=== PATIENT | male | born 1980 | race Caucasian/White ===

== ENCOUNTER 2023-11-08 12:58 | Observation (INO) | payer BC, OTHER, SELFPAY ==
[2023-11-08 13:40] LABS: #Basophils 0.08 10x3/uL (0.0-0.2); #Eosinphils 0.22 10x3/uL (0.0-0.5); #Monocytes 0.66 10x3/uL (0.0-1.1); %Basophils 0.7 % (0.0-2.0); %Monocytes 6.1 % (0.0-10.0); %Neutrophils 79.7 % (40.0-75.0); Hematocrit 49.4 % (38.8-50.0); Hemoglobin 16.9 g/dL (13.5-17.5); Mean Corpuscular HGB CONC 34.2 g/dL (32.0-36.0); Mean Corpuscular Hemoglobin 31.9 pg (27.0-33.0); Mean Corpuscular Volume 93.4 fL (81.2-95.1); Mean Platelet Volume 10.9 fL (7.4-10.4); Platelet Count 221 10x3/uL (150-450); Red Blood Cell (RBC) Count 5.29 10x6/uL (4.32-5.72); White Blood Cell (WBC) Count 10.8 10x3/uL (3.5-10.5)
[2023-11-08 14:05] LABS: ALT (SGPT) 46 U/L (8-55); AST (SGOT) 41 U/L (5-34); Albumin 4.4 g/dL (3.5-5.0); Alkaline Phosphatase 69 U/L (40-110); Anion Gap 16 mmol/L (10-20); BUN (Urea Nitrogen) 20 mg/dL (8.9-20.6); Bilirubin, Total 1.5 mg/dL (0.2-1.2); Calc. Creatinine Clearance 0 mL/min (70-130); Calcium 10.4 mg/dL (7.8-10.44); Carbon Dioxide 22 mmol/L (22-29); Chloride 106 mmol/L (98-107); Estimated GFR 40; Globulin 3.5 g/dL (2.4-3.5); Glucose 195 mg/dL (70-105); Potassium 3.9 mmol/L (3.5-5.1); Protein, Total 7.9 g/dL (6.0-8.3); Sodium 140 mmol/L (136-145)
[2023-11-08 14:06] LABS: Analyzer IN Cardio CS ER; Base Excess -2.6 mEq/L (-2 - +2); Calcium, Ionized (venous) 1.17 mmol/L (1.16-1.32); Chloride (VBG) 104 mmol/L (98-106); Hematocrit-VBG 54 % (42.0-52.0); Hemoglobin (Hb) 18.3 g/dL (13.2-17.3); Potassium (VBG) 3.96 mmol/L (3.70-5.30); Puncture Site Other Site; RapidComm Collect By CBN; Sodium 142 mmol/L (133-146); pH (venous) 7.352 (7.32-7.43)
[2023-11-08] MEDS ORDERED: Ondansetron PF 4 MG/2 ML Vial IVP PRN (16:40)
[2023-11-08] MEDS ORDERED: Acetaminophen 650 MG Suppository PR PRN (16:40)
[2023-11-08] MEDS ORDERED: Ondansetron ODT 4 MG TAB PO PRN (16:40)
[2023-11-08] MEDS ORDERED: Senokot S 8.6-50 MG TAB PO PRN (16:40)
[2023-11-08] MEDS ORDERED: Ventolin HFA Inhaler 60 PUFF INHALER INH PRN (17:27)
[2023-11-08 18:54] VITALS: BMI 32.1
[2023-11-08 18:57] LABS: Magnesium 1.9 mg/dL (1.6-2.6)
[2023-11-08 19:01] LABS: Troponin I 0.038 ng/mL (< 0.028)
[2023-11-08] MEDS: Acetaminophen 325 MG TAB PO SCH (19:05)
[2023-11-08] MEDS: Lactated Ringer's 1,000 ML IV SCH (19:06)
[2023-11-08] MEDS: Nicotine 14 MG PATCH TOP PRN (21:16)
[2023-11-08] MEDS: Famotidine 20 MG TAB PO SCH (21:16)
[2023-11-09 04:53] LABS: #Basophils 0.08 10x3/uL (0.0-0.2); #Eosinphils 0.43 10x3/uL (0.0-0.5); #Monocytes 0.71 10x3/uL (0.0-1.1); #Neutrophils 4.04 10x3/uL (1.5-8.4); %Eosinophils 5.3 % (0.0-6.0); %Lymphocytes 34.3 % (18.0-47.0); %Monocytes 8.8 % (0.0-10.0); %Neutrophils 50.2 % (40.0-75.0); Hematocrit 45.6 % (38.8-50.0); Hemoglobin 15.4 g/dL (13.5-17.5); Mean Corpuscular HGB CONC 33.8 g/dL (32.0-36.0); Mean Corpuscular Hemoglobin 31.9 pg (27.0-33.0); Mean Corpuscular Volume 94.4 fL (81.2-95.1); Mean Platelet Volume 11.3 fL (7.4-10.4); Platelet Count 173 10x3/uL (150-450); RBC Distribution Width 12.9 % (11.5-14.5); Red Blood Cell (RBC) Count 4.83 10x6/uL (4.32-5.72); White Blood Cell (WBC) Count 8.1 10x3/uL (3.5-10.5)
[2023-11-09 05:08] LABS: ALT (SGPT) 35 U/L (8-55); AST (SGOT) 37 U/L (5-34); Alkaline Phosphatase 63 U/L (40-110); BUN (Urea Nitrogen) 19 mg/dL (8.9-20.6); Bilirubin, Total 1.2 mg/dL (0.2-1.2); Calc. Creatinine Clearance 120 mL/min (70-130); Estimated GFR 80
[2023-11-09 05:09] LABS: Albumin 3.6 g/dL (3.5-5.0); Anion Gap 14 mmol/L (10-20); Carbon Dioxide 24 mmol/L (22-29); Globulin 3.5 g/dL (2.4-3.5); Glucose 108 mg/dL (70-105); Protein, Total 7.1 g/dL (6.0-8.3)
[2023-11-09 05:31] LABS: Chloride 108 mmol/L (98-107); Potassium 3.8 mmol/L (3.5-5.1); Sodium 141 mmol/L (136-145)
[2023-11-09] MEDS: Amlodipine 5 MG TAB PO SCH (06:00)
[2023-11-09 07:32] LABS: Troponin I 0.021 ng/mL (< 0.028)
[2023-11-09] MEDS: NIFEdipine XL 30 MG ER.TAB PO SCH (08:09)
[2023-11-09] MEDS: Folic Acid 1 MG TAB PO SCH (08:16)
[2023-11-09] MEDS: Enoxaparin 40 MG (0.4 mL) SYRINGE SC SCH (08:16)
[2023-11-09] MEDS: Multivitamin W/ Minerals 1 TAB PO SCH (08:17)
[2023-11-09 12:13] VITALS: TEMP 97.5
[2023-11-09 13:49] VITALS: BP 164/78
== END 2023-11-09 15:51 | disposition home or self-care (01) ==
LOC: CSHERS 12:58 → CSHTELE 15:26
PROVIDERS: ADMIT Internal Medicine; ATTEND Internal Medicine
DX: R07.89 Other chest pain (principal); I10 Essential (primary) hypertension; G03.9 Meningitis, unspecified; F41.9 Anxiety disorder, unspecified; F17.210 Nicotine dependence, cigarettes, uncomplicated; N17.9 Acute kidney failure, unspecified; Z79.51 Long term (current) use of inhaled steroids; Z79.899 Other long term (current) drug therapy
CPT/HCPCS: 36415; 71045; 80053; 82550; 82805; 83735; 83880; 84484; 85025; 85379; 93005; G0378; J7120

== ENCOUNTER 2024-10-08 02:24 | Inpatient (IN) | payer OTHER ==
[2024-10-08 03:25] VITALS: BMI 32.8
[2024-10-08] MEDS ORDERED: Calcium Carbonate 500 MG ChewTAB PO PRN (03:29)
[2024-10-08] MEDS ORDERED: Melatonin 3 MG TAB PO PRN (03:29)
[2024-10-08] MEDS ORDERED: Ondansetron PF 4 MG/2 ML Vial IVP PRN (03:29)
[2024-10-08] MEDS ORDERED: Senokot S 8.6-50 MG TAB PO PRN (03:29)
[2024-10-08] MEDS ORDERED: Nitroglycerin 0.4 MG TAB (25 Tab Bottle) SL PRN (03:38)
[2024-10-08] MEDS: Losartan 50 MG TAB PO SCH (03:58)
[2024-10-08 04:09] LABS: #Basophils 0.08 10x3/uL (0.0-0.2); #Eosinophils 0.22 10x3/uL (0.0-0.5); #Monocytes 0.73 10x3/uL (0.0-1.1); #Neutrophils 3.88 10x3/uL (1.5-8.4); %Basophils 1.1 % (0.0-2.0); %Eosinophils 3.0 % (0.0-6.0); %Lymphocytes 31.7 % (18.0-47.0); %Monocytes 10.0 % (0.0-10.0); %Neutrophils 53.1 % (40.0-75.0); Hematocrit 42.2 % (38.8-50.0); Hemoglobin 14.1 g/dL (13.5-17.5); Mean Corpuscular Hemoglobin 31.3 pg (27.0-33.0); Mean Corpuscular Volume 93.8 fL (81.2-95.1); Platelet Count 184 10x3/uL (150-450); Red Blood Cell (RBC) Count 4.50 10x6/uL (4.32-5.72); White Blood Cell (WBC) Count 7.31 10x3/uL (3.5-10.5)
[2024-10-08 04:25] LABS: Anion Gap 14 mmol/L (10-20); BUN (Urea Nitrogen) 9 mg/dL (8.9-20.6); Calc. Creatinine Clearance 147 mL/min (70-130); Calcium 8.6 mg/dL (7.8-10.44); Carbon Dioxide 22 mmol/L (22-29); Chloride 107 mmol/L (98-107); Glucose 107 mg/dL (70-105); Potassium 4.0 mmol/L (3.5-5.1); Sodium 139 mmol/L (136-145)
[2024-10-08 04:32] LABS: Troponin I 0.055 ng/mL (< 0.028)
[2024-10-08 04:37] LABS: Cardiac Risk 4.6 (Less than 4.5); Cholesterol 170 mg/dl (< 200 Desired); HDL Cholesterol 37 mg/dL (>60 Neg Risk); LDL Cholesterol, Calculated 98 mg/dL; Triglycerides 176 mg/dL (Less than 150)
[2024-10-08] MEDS: PNEUMOC 20-VAL CONJ-DIP CRM/PF 0.5 ML SYRINGE IM ONE (06:31)
[2024-10-08] MEDS: Aspirin 81 mg Enteric Coated Tablet PO SCH (08:43)
[2024-10-08 12:25] LABS: Magnesium 2.0 mg/dL (1.6-2.6)
[2024-10-08 12:46] LABS: Free T4 (Free Thyroxine) 1.25 ng/dL (0.70-1.48); Thyroid Stimulating Hormone 1.9614 uIU/mL (0.35-4.94)
[2024-10-08] MEDS: Acetaminophen 325 MG TAB PO PRN (13:32)
[2024-10-08] MEDS: Enoxaparin 60 MG (0.6 mL) SYRINGE SC SCH (13:33)
[2024-10-09] MEDS: Losartan 50 MG TAB PO SCH (08:05)
[2024-10-09] MEDS ORDERED: Heparin 10,000 UNITS/ 10 ML VIAL ONE (08:49)
[2024-10-09] MEDS ORDERED: PHENYLEPHRINE-NS 100 MCG/ML 10 ML SYRINGE ONE (08:49)
[2024-10-09] MEDS ORDERED: Lidocaine 1% (PF) 30 ML VIAL ONE (08:50)
[2024-10-09] MEDS ORDERED: Nitroglycerin 50 MG/250 ML BOT 250 ML ONE (10:33)
[2024-10-09] MEDS ORDERED: Adenosine 6 mg (2 mL) VIAL ONE (10:44)
[2024-10-09] MEDS ORDERED: cloNIDine 0.1 MG TAB ONE (11:45)
[2024-10-09] MEDS ORDERED: Iopamidol 300 61% 100 ML VIAL FS ONE (12:11)
[2024-10-09] MEDS: hydrALAZINE 20 MG/ML VIAL SLOW IVP PRN (12:36)
[2024-10-10 08:04] VITALS: BP 150/86
[2024-10-10 08:12] VITALS: TEMP 98.4
[2024-10-10 10:45] LABS: #Basophils 0.07 10x3/uL (0.0-0.2); #Eosinophils 0.32 10x3/uL (0.0-0.5); #Monocytes 0.85 10x3/uL (0.0-1.1); #Neutrophils 4.65 10x3/uL (1.5-8.4); %Basophils 0.9 % (0.0-2.0); %Eosinophils 4.0 % (0.0-6.0); %Lymphocytes 26.3 % (18.0-47.0); %Monocytes 10.5 % (0.0-10.0); %Neutrophils 57.6 % (40.0-75.0); Hematocrit 43.8 % (38.8-50.0); Hemoglobin 14.6 g/dL (13.5-17.5); Mean Corpuscular Hemoglobin 31.7 pg (27.0-33.0); Mean Corpuscular Volume 95.0 fL (81.2-95.1); Platelet Count 180 10x3/uL (150-450); Red Blood Cell (RBC) Count 4.61 10x6/uL (4.32-5.72); White Blood Cell (WBC) Count 8.07 10x3/uL (3.5-10.5)
[2024-10-10 11:02] LABS: Anion Gap 12 mmol/L (10-20); BUN (Urea Nitrogen) 19 mg/dL (8.9-20.6); Calc. Creatinine Clearance 134 mL/min (70-130); Calcium 9.1 mg/dL (7.8-10.44); Carbon Dioxide 24 mmol/L (22-29); Chloride 104 mmol/L (98-107); Glucose 133 mg/dL (70-105); Potassium 4.0 mmol/L (3.5-5.1); Sodium 136 mmol/L (136-145)
== END 2024-10-10 11:38 | disposition home or self-care (01) | DRG 287 ==
LOC: CSHTELE 03:05 → OBSVTOIN 10-09 17:22
PROVIDERS: ADMIT Internal Medicine; ATTEND Internal Medicine
PROC: 4A023N7 Measurement of Cardiac Sampling and Pressure, Left Heart, Percutaneous Approach (ICD-10-PCS; principal; 2024-10-09)
PROC: B2111ZZ Fluoroscopy of Multiple Coronary Arteries using Low Osmolar Contrast (ICD-10-PCS; 2024-10-09)
PROC: B2151ZZ Fluoroscopy of Left Heart using Low Osmolar Contrast (ICD-10-PCS; 2024-10-09)
DX: I16.0 Hypertensive urgency (principal); I50.32 Chronic diastolic (congestive) heart failure; Z91.199 Patient's noncompliance with other medical treatment and regimen due to unspecified reason; F17.210 Nicotine dependence, cigarettes, uncomplicated; I25.10 Atherosclerotic heart disease of native coronary artery without angina pectoris; E78.5 Hyperlipidemia, unspecified; I11.0 Hypertensive heart disease with heart failure
CPT/HCPCS: 36252; 36415; 80048; 80061; 83036; 83735; 84439; 84443; 85025; 92928; 92978; 92979; 93005; 93010; 93306; 93458; 96372; 96374; 99152; 99153; C1753; C1760; C1769; C1874; C1887; C9600; G0378; J0153; J0360; J0461; J1644; J1650; J2250; J3010; J7042; Q9967